=== PATIENT | male | born 1990 | race Caucasian/White ===

== ENCOUNTER 2017-04-23 06:14 | Emergency (ER) | payer SELFPAY | END 2017-04-23 06:55 | disposition home or self-care (01) | LOC: ERS 06:14 | DX: K02.9 Dental caries, unspecified (principal); K03.81 Cracked tooth; G43.909 Migraine, unspecified, not intractable, without status migrainosus; Z79.891 Long term (current) use of opiate analgesic | CPT/HCPCS: 99282 ==

== ENCOUNTER 2017-06-09 18:15 | Emergency (ER) | payer SELFPAY ==
[2017-06-09] MEDS ORDERED: Ketorolac Tromethamine 30 MG/ML VIAL ONE (18:40)
== END 2017-06-09 19:22 | disposition home or self-care (01) ==
LOC: ERS 18:15
DX: K03.81 Cracked tooth (principal); K02.9 Dental caries, unspecified; G43.909 Migraine, unspecified, not intractable, without status migrainosus; F41.9 Anxiety disorder, unspecified
CPT/HCPCS: 96372; J1885